=== PATIENT | male | born 1990 | race African-American/Black ===

== ENCOUNTER 2018-11-19 13:55 | Emergency (ER) | payer SELFPAY ==
[~2018-11-19] VITALS: Ht 180.3 cm; Wt 84.1 kg
[2018-11-19 14:34] VITALS: BP 119/80; TEMP 99.6
[2018-11-19] MEDS ORDERED: MOTRIN 800800 MG/TAB PO (15:49)
[2018-11-19] MEDS ORDERED: NORCO 325 MG-51 TAB PO (15:49)
[2018-11-19 16:05] VITALS: PULSE 88
== END 2018-11-19 16:05 | disposition home or self-care (01) ==
LOC: COL.ER 13:55
DX: T22.20XA Burn of second degree of shoulder and upper limb, except wrist and hand, unspecified site, initial encounter (principal); S63.602A Unspecified sprain of left thumb, initial encounter; J45.909 Unspecified asthma, uncomplicated; X10.2XXA Contact with fats and cooking oils, initial encounter; Y93.G3 Activity, cooking and baking